=== PATIENT | female | born 1955 | race Caucasian/White ===

== ENCOUNTER 2017-02-22 15:42 | Observation (INO) | payer OTHER ==
[~2017-02-22] VITALS: Ht 177.8 cm; Wt 85.4 kg
[~2017-02-22 15:42] MED LIST changes: -CHLORHEXIDINE GLUCONATE 2 % 1 PACK (2 CLOTHS) TOPICAL PRN; -CHOL5000 PO; -DEXAMETHASONE SOD PHOS 4 MG/ML VIAL ONE; -DO NOT ADM ANY ANTICOAGULANT DRUGS PRN; -FAMOTIDINE 20 MG/2 ML VIAL ONE; -HEMOCAP PO; -HYDROmorphone HCL 2 MG TAB PO PRN; -HYDROmorphone HCL PF 1 MG/ML VIAL ONE; -INSULIN HUMAN REGULAR 1,000 UNITS/10 ML VIAL SQ PRN; -KETOROLAC TROMETHAMINE 60 MG/2 ML (IM) VIAL IM ONE; -LACTATED RINGER'S 1000 ML IV PRN; -LACTCAP8 PO; -METOPROLOL TARTRATE 25 MG TAB PO PRN; -MIDAZOLAM HCL 2 MG/2 ML VIAL ONE; -ONDANSETRON HCL 4 MG/2 ML VIAL IV PUSH ONE; -ONDANSETRON HCL 4 MG/2 ML VIAL IV PUSH PRN; -PERC5TAB12 PO; -POVIDONE IODINE 5% (ANTISEPSIS KIT) 4 APPLICATIONS EACH NARE PRN; -PROM25TA10 PO; -PROPOFOL 200 MG/20 ML AMP IV ONE; -SODIUM CHLORID 0.9% 500 ML IV PRN; -ePHEDrine/NS 25 MG/5 ML SYR IV ONE
[2017-02-22 15:52] VITALS: BP 140/81; PULSE 78; RESP 22; TEMP 97.5; O2SAT 100
[2017-02-22] MEDS ORDERED: KETOROLAC TROMETHAMINE 30 MG/ML (IVP) VIAL IV PUSH ONE (16:15)
[2017-02-22] MEDS ORDERED: MORPHINE SULFATE 4 MG/ML INJ IV PUSH ONE (16:15)
[2017-02-22] MEDS ORDERED: ONDANSETRON HCL 4 MG/2 ML VIAL IV PUSH ONE ×2 (16:15→17:00)
[2017-02-22] MEDS ORDERED: SODIUM CHLOR 0.9% 1000 ML INJ 1,000 ML IV ONE (16:15)
[2017-02-22 16:42] LABS: AUTOMATED NEUTROPHIL # 13.1 TH/MM3 (1.8-7.7); BASOPHIL # 0.1 TH/MM3 (0-0.2); BASOPHIL % 0.6 % (0.0-2.0); EOSINOPHIL % 0.2 % (0.0-4.0); HEMATOCRIT 35.2 % (35.0-46.0); LYMPH % 2.9 % (9.0-44.0); LYMPHOCYTE # 0.4 TH/MM3 (1.0-4.8); MEAN CELL VOLUME 85.4 FL (80.0-100.0); MEAN CORPUSCULAR HEMOGLOBIN 29.9 PG (27.0-34.0); MEAN CORPUSCULAR HGB CONC 34.9 % (32.0-36.0); MONO % 2.4 % (0.0-8.0); NEUT % 93.9 % (16.0-70.0); PLATELET COUNT 260 TH/MM3 (150-450); RED BLOOD COUNT 4.12 MIL/MM3 (4.00-5.30); RED CELL DISTRIBUTION WIDTH 12.2 % (11.6-17.2); WHITE BLOOD COUNT 13.9 TH/MM3 (4.0-11.0)
--- NOTE | 2017-02-22 16:43 | RADHPO ---
EXAM DATE/TIME: 02/22/2017 16:21 [facility] COMPARISON: CHEST SINGLE AP, November 09, 2013, 15:32. INDICATIONS : Chest discomfort, nausea, vomiting for 4 hours MEDICAL HISTORY : None. SURGICAL HISTORY : None. ENCOUNTER: Initial ACUITY: 1 day PAIN SCORE: 0/10 LOCATION: Bilateral chest FINDINGS: Minimal streaky bibasilar parenchymal opacities are noted. Lung volumes are mildly diminished. There is no evidence of effusion. Cardiac contours are satisfactory. CONCLUSION: Mild basilar parenchymal opacities Moreno Gonzalez MD on February 22, 2017 at 16:41 Board Certified Radiologist. This report was verified electronically.
[2017-02-22 16:44] LABS: HEMO FLAGS DIFF FINAL
[2017-02-22 16:52] LABS: CHLORIDE 104 MEQ/L (98-107); POTASSIUM 3.7 MEQ/L (3.5-5.1); SODIUM (NA) 140 MEQ/L (136-145)
[2017-02-22 16:55] LABS: ANION GAP 10 MEQ/L (5-15); BICARBONATE 26.4 MEQ/L (21.0-32.0)
[2017-02-22 16:56] LABS: BLOOD UREA NITROGEN 15 MG/DL (7-18)
[2017-02-22 16:59] LABS: ALT (GPT) 30 U/L (10-53); AST (GOT) 27 U/L (15-37); GLOMERULAR FILTRATION RATE 59 ML/MIN (>89)
[2017-02-22 17:00] LABS: TOTAL BILIRUBIN ADULT 0.5 MG/DL (0.2-1.0)
[2017-02-22] MEDS ORDERED: HYDROmorphone HCL PF 1 MG/ML VIAL IV PUSH ONE ×2 (17:00→18:00)
[2017-02-22 17:01] LABS: ALKALINE PHOSPHATASE 100 U/L (45-117)
--- NOTE | 2017-02-22 17:30 | PD ---
HPI Chief Complaint: Pain: Acute or Chronic Time Seen by Provider: 16:03 Travel History International Travel<30 days: No Contact w/Intl Traveler<30days: No Traveled to known affect area: No History of Present Illness HPI Patient is a 61 year old female who comes in complaining of severe flank pain radiating into her abdomen. She had lithotripsy performed today for left sided renal stones and says the pain started shortly after that. She has not taken the Dilaudid she was prescribed because she says the bottle says to take it every 6 hours and it has not been 6 hours since she received it post procedure. She says she is very nauseous and has had vomiting. She also complains of a lot of belching and what she believes to be "gas pains." She says the pain is worse when she takes a deep breath. She denies cough or fevers. PFSH Past Medical History Asthma: Yes Cancer: No Cardiovascular Problems: No High Cholesterol: Yes Diabetes: No Diminished Hearing: No Endocrine: No Gastrointestinal Disorders: No Glaucoma: No Genitourinary: No Hepatitis: No Hiatal Hernia: No Hypertension: Yes Immune Disorder: No Medical other: Yes (HX ANEMIA) Musculoskeletal: No Neurologic: No Psychiatric: No Reproductive: No Respiratory: Yes (MILD ASTHMA) Thyroid Disease: No Influenza Vaccination: No ?: Not Menopausal: Yes Past Surgical History Abdominal Surgery: Yes (left inguinal hernia repair) AICD: No Body Medical Devices: none Cardiac Surgery: No Ear Surgery: No Endocrine Surgery: No Eye Surgery: No Genitourinary Surgery: Yes (lithotripsy) Gynecologic Surgery: Yes (c section) Neurologic Surgery: No Oral Surgery: No Pacemaker: No Thoracic Surgery: No Social History Alcohol Use: No Tobacco Use: No Substance Use: No Allergies-Medications (Allergen,Severity, Reaction): Coded Allergies: Codeine (Verified Allergy, Severe, itching and upset stomach, 02/22/17) Penicillin (Verified Allergy, Severe, upset stomach, 02/22/17) Reported Meds & Prescriptions Reported Meds & Active Scripts Active Dilaudid (Hydromorphone HCl) 2 Mg Tab 2 Mg PO Q6H PRN Reported Ambien (Zolpidem Tartrate) 10 Mg Tab 10 Mg PO HS PRN Omeprazole 20 Mg Tab 20 Mg PO DAILY Lovastatin 40 Mg Tab 40 Mg PO DAILY Vitamin D3 (Cholecalciferol) 5,000 Unit Chew 5,000 Units CHEW DAILY Symbicort Inh (Budesonide/Formoterol Fumarate) 80-4.5 Mcg/Act Aero 2 Puff INH Q12HR Amlodipine (Amlodipine Besylate) 10 Mg Tab 10 Mg PO DAILY Proair Hfa 8.5 GM Inh (Albuterol Sulfate) 90 Mcg/Act Aer 2 Puff INH Q4-6H PRN 108 mcg/actuation Review of Systems Except as stated in HPI: all other systems reviewed are Neg General / Constitutional: No: Fever, Chills Eyes: No: Blurred Vision HENT: No: Headaches, Lightheadedness Respiratory: Positive: Shortness of Breath, No: Cough Gastrointestinal: Positive: Nausea, Vomiting, Abdominal Pain Musculoskeletal: Positive: Pain Skin: No Rash, No Change in Pigmentation Neurologic: No: Weakness, Dizziness Physical Exam Narrative GENERAL: Awake and alert, in mild distress due to pain. SKIN: Focused skin assessment warm/dry. HEAD: Atraumatic. Normocephalic. EYES: Pupils equal and round. No scleral icterus. ENT: Mucous membranes pink and moist. NECK: Trachea midline. No JVD. CARDIOVASCULAR: Regular rate and rhythm. No murmur appreciated. RESPIRATORY: No accessory muscle use. Clear to auscultation. Breath sounds equal bilaterally. GASTROINTESTINAL: Abdomen soft, non-tender, nondistended. Tender to palpation in left CVA. MUSCULOSKELETAL: No obvious deformities. No clubbing. No cyanosis. No edema. NEUROLOGICAL: Awake and alert. No obvious cranial nerve deficits. Motor grossly within normal limits. Normal speech. PSYCHIATRIC: Appropriate mood and affect; insight and judgment normal. Data Data Last Documented VS Vital Signs Date Time Temp Pulse Resp B/P Pulse Ox O2 Delivery O2 Flow Rate FiO2 02/22/17 16:09 18 02/22/17 15:52 97.5 78 140/81 100 Orders Complete Blood Count With Diff (02/22/17 16:09) Comprehensive Metabolic Panel (02/22/17 16:09) Urinalysis - C+S If Indicated (02/22/17 16:09) Sodium Chlor 0.9% 1000 Ml Inj (Ns 1000 M (02/22/17 16:15) Morphine Inj (Morphine Inj) (02/22/17 16:15) Ondansetron Inj (Zofran Inj) (02/22/17 16:15) Ketorolac Inj (Toradol Inj) (02/22/17 16:15) Ct Abd/Pel W/O Iv Contrast (02/22/17 ) Chest, Single Ap (02/22/17 ) Ondansetron Inj (Zofran Inj) (02/22/17 17:00) Hydromorphone Pf Inj (Dilaudid Pf Inj) (02/22/17 17:00) Hydromorphone Pf Inj (Dilaudid Pf Inj) (02/22/17 18:00) Admit Order (Ed Use Only) (02/22/17 ) Labs Laboratory Tests Test 02/22/17 02/22/17 16:28 18:05 White Blood Count 13.9 TH/MM3 Red Blood Count 4.12 MIL/MM3 Hemoglobin 12.3 GM/DL Hematocrit 35.2 % Mean Corpuscular Volume 85.4 FL Mean Corpuscular Hemoglobin 29.9 PG Mean Corpuscular Hemoglobin 34.9 % Concent Red Cell Distribution Width 12.2 % Platelet Count 260 TH/MM3 Mean Platelet Volume 7.4 FL Neutrophils (%) (Auto) 93.9 % Lymphocytes (%) (Auto) 2.9 % Monocytes (%) (Auto) 2.4 % Eosinophils (%) (Auto) 0.2 % Basophils (%) (Auto) 0.6 % Neutrophils # (Auto) 13.1 TH/MM3 Lymphocytes # (Auto) 0.4 TH/MM3 Monocytes # (Auto) 0.3 TH/MM3 Eosinophils # (Auto) 0.0 TH/MM3 Basophils # (Auto) 0.1 TH/MM3 CBC Comment DIFF FINAL Differential Comment Sodium Level 140 MEQ/L Potassium Level 3.7 MEQ/L Chloride Level 104 MEQ/L Carbon Dioxide Level 26.4 MEQ/L Anion Gap 10 MEQ/L Blood Urea Nitrogen 15 MG/DL Creatinine 0.96 MG/DL Estimat Glomerular Filtration 59 ML/MIN Rate Random Glucose 167 MG/DL Calcium Level 9.0 MG/DL Total Bilirubin 0.5 MG/DL Aspartate Amino Transf 27 U/L (AST/SGOT) Alanine Aminotransferase 30 U/L (ALT/SGPT) Alkaline Phosphatase 100 U/L Total Protein 7.6 GM/DL Albumin 4.3 GM/DL Urine Color THALIA Urine Turbidity CLOUDY Urine pH 7.0 Urine Specific [place] 1.011 Urine Protein 100 mg/dL Urine Glucose (UA) NEG mg/dL Urine Ketones NEG mg/dL Urine Occult Blood LARGE Urine Nitrite NEG Urine Bilirubin NEG Urine Leukocyte Esterase TRACE Urine RBC 50-99 /hpf Urine WBC 0-2 /hpf Urine Squamous Epithelial 0-5 /hpf Cells Microscopic Urinalysis Comment CULT NOT INDICATED MDM Medical Decision Making Medical Screen Exam Complete: Yes Emergency Medical Condition: Yes Medical Record Reviewed: Yes Differential Diagnosis Renal calculi versus pyelonephritis versus procedural complication Narrative Course Patient is a 61-year-old female comes in complaining of flank pain and abdominal pain with nausea and vomiting. Exam shows patient is very uncomfortable, tenderness to the left flank. Had IV established, labs sent. Labs show hemoglobin of 12.3. Given IV fluids, morphine, Zofran. Patient continued to have pain and nausea, given Dilaudid and Zofran. CT of the abdomen and pelvis performed shows a renal hematoma. I spoke with Dr. Rudolph of urology who suggests observation with serial hemoglobins. Patient placed in observation for further management. Diagnosis Primary Impression: Renal hematoma Qualified Code: S37.012A - Renal hematoma, left, initial encounter Admitting Information Admitting Physician Requests: Observation Condition: Stable Pati Walden MD February 22, 2017 17:30
[2017-02-22 18:35] LABS: BLOOD, URINE LARGE (NEG); GLUCOSE,URINE NEG (NEG); KETONE, URINE NEG (NEG); NITRITE,URINE NEG (NEG)
--- NOTE | 2017-02-22 18:39 | RADHPO ---
EXAM DATE/TIME: 02/22/2017 17:59 [facility] COMPARISON: No previous studies available for comparison. INDICATIONS : Increased abdominal pain and vomiting post left lithotripsy today. ORAL CONTRAST: No oral contrast ingested. RADIATION DOSE: 23.98 CTDIvol (mGy) MEDICAL HISTORY : Hypertension. Renal calculi. Hernia, inguinal. SURGICAL HISTORY : Inguinal hernia repair. section. ENCOUNTER: Initial ACUITY: 1 day PAIN SCALE: 10/10 LOCATION: Left abdomen TECHNIQUE: Volumetric scanning of the abdomen and pelvis was performed. Using automated exposure control and ad justment of the mA and/or kV according to patient size, radiation dose was kept as low as reasonably achievable to obtain optimal diagnostic quality images. FINDINGS: Minimal atelectatic changes at the lung bases. There are degenerative changes of the spine seen. No p leural effusions. A calcified gallstone is present within the gallbladder measuring 1.9 cm. There is a large subcapsular hematoma left kidney seen posteriorly and extending from the upper, mid to lower pole, with perinephric extension measuring on image 61 a maximal 10.4 x 7.4 cm in transverse and AP d imension. Multiple left-sided renal calculi are identified the largest at the lower pole measuring 1 cm. Punctate nonobstructing right renal calculi are present as well as a hyperdense mass right mid po le medially likely a hemorrhagic or proteinaceous cyst, right lateral mid to upper pole renal scarrin g. Hemorrhage is seen extending into the left upper quadrant. Urinary bladder, uterus and ovaries are unremarkable. No evidence of bowel obstruction. No adenopathy. Spleen, pancreas, bilateral adrenal g lands are unremarkable. CONCLUSION: 1. Left renal and perirenal hematoma mass effect on the left kidney posteriorly as above. 2. Multiple nonobstructing bilateral renal calculi and right renal scarring. Ronald Geller MD on February 22, 2017 at 18:34 Board Certified Radiologist. This report was verified electronically.
[2017-02-22 18:41] LABS: URINE COLOR AMBER (YELLW/STRAW)
[2017-02-22 18:42] LABS: WBC, URINE 0-2 /hpf (0-5)
[2017-02-22 18:43] LABS: COMMENT (UR) CULT NOT INDICATED; CULTURE IF INDICATED CULT NOT INDICATED; SQUAMOUS EPITHELIAL CELL URINE 0-5 /hpf (0-5)
[2017-02-22 19:44] VITALS: BP 169/84; PULSE 68; RESP 16; O2SAT 100
--- NOTE | 2017-02-22 19:57 | HHI.HP ---
HPI Service [facility] Hospitalists Primary Care Physician Non-Staff Admission Diagnosis renal hematoma Chief Complaint: s/p lithotripsy with renal hematoma Travel History International Travel<30 Days: No Contact w/Intl Traveler <30 Da: No Traveled to Known Affected Are: No History of Present Illness Patient is a 61 year old female who comes in complaining of severe flank pain radiating into her abdomen. She had lithotripsy performed today for left sided renal stones and says the pain started shortly after that. She has not taken the Dilaudid she was prescribed because she says the bottle says to take it every 6 hours and it has not been 6 hours since she received it post procedure. She says she is very nauseous and has had vomiting. She also complains of a lot of belching and what she believes to be "gas pains." She says the pain is worse when she takes a deep breath. She denies cough or fevers. CT suggests large renal hematoma .Urology recommends admit follow hemoglobin and they will consult. Review of Systems Gastrointestinal: COMPLAINS OF: Abdominal pain, Nausea, Vomiting Past Family Social History Past Medical History asthma ,hypertension,hyperlipidemia Past Surgical History lithotripsy,inguinal hernia Reported Medications Ambien (Zolpidem Tartrate) 10 Mg Tab 10 Mg PO HS PRN Omeprazole 20 Mg Tab 20 Mg PO DAILY Lovastatin 40 Mg Tab 40 Mg PO DAILY Vitamin D3 (Cholecalciferol) 5,000 Unit Chew 5,000 Units CHEW DAILY Symbicort Inh (Budesonide/Formoterol Fumarate) 80-4.5 Mcg/Act Aero 2 Puff INH Q12HR Amlodipine (Amlodipine Besylate) 10 Mg Tab 10 Mg PO DAILY Proair Hfa 8.5 GM Inh (Albuterol Sulfate) 90 Mcg/Act Aer 2 Puff INH Q4-6H PRN 108 mcg/actuati Allergies: Coded Allergies: Codeine (Verified Allergy, Severe, itching and upset stomach, 02/22/17) Penicillin (Verified Allergy, Severe, upset stomach, 02/22/17) Social History NS,ND Physical Exam Vital Signs Vital Signs Date Time Temp Pulse Resp B/P Pulse Ox O2 Delivery O2 Flow Rate FiO2 02/22/17 19:44 68 16 169/84 100 Room Air 02/22/17 16:09 18 02/22/17 15:52 97.5 78 22 140/81 100 Physical Exam GENERAL: This is a well-nourished, well-developed patient, in no apparent distress. SKIN: No rashes, ecchymoses or lesions. Cool and dry. HEAD: Atraumatic. Normocephalic. No temporal or scalp tenderness. EYES: Pupils equal round and reactive. Extraocular motions intact. No scleral icterus. No injection or drainage. ENT: Nose without bleeding, purulent drainage or septal hematoma. Throat without erythema, tonsillar hypertrophy or exudate. Uvula midline. Airway patent. NECK: Trachea midline. No JVD or lymphadenopathy. Supple, nontender, no meningeal signs. CARDIOVASCULAR: Regular rate and rhythm without murmurs, gallops, or rubs. RESPIRATORY: Clear to auscultation. Breath sounds equal bilaterally. No wheezes , rales, or rhonchi. GASTROINTESTINAL: Abdomen soft, Left flank pain on palpation MUSCULOSKELETAL: Extremities without clubbing, cyanosis, or edema. No joint tenderness, effusion, or edema noted. No calf tenderness. Negative Homans sign bilaterally. NEUROLOGICAL: Awake and alert. Cranial nerves II through XII intact. Motor and sensory grossly within normal limits. Five out of 5 muscle strength in all muscle groups. Normal speech. Laboratory Laboratory Tests Test 02/22/17 02/22/17 16:28 18:05 White Blood Count 13.9 Red Blood Count 4.12 Hemoglobin 12.3 Hematocrit 35.2 Mean Corpuscular Volume 85.4 Mean Corpuscular Hemoglobin 29.9 Mean Corpuscular Hemoglobin 34.9 Concent Red Cell Distribution Width 12.2 Platelet Count 260 Mean Platelet Volume 7.4 Neutrophils (%) (Auto) 93.9 Lymphocytes (%) (Auto) 2.9 Monocytes (%) (Auto) 2.4 Eosinophils (%) (Auto) 0.2 Basophils (%) (Auto) 0.6 Neutrophils # (Auto) 13.1 Lymphocytes # (Auto) 0.4 Monocytes # (Auto) 0.3 Eosinophils # (Auto) 0.0 Basophils # (Auto) 0.1 CBC Comment DIFF FINAL Differential Comment Sodium Level 140 Potassium Level 3.7 Chloride Level 104 Carbon Dioxide Level 26.4 Anion Gap 10 Blood Urea Nitrogen 15 Creatinine 0.96 Estimat Glomerular Filtration 59 Rate Random Glucose 167 Calcium Level 9.0 Total Bilirubin 0.5 Aspartate Amino Transf 27 (AST/SGOT) Alanine Aminotransferase 30 (ALT/SGPT) Alkaline Phosphatase 100 Total Protein 7.6 Albumin 4.3 Urine Color THALIA Urine Turbidity CLOUDY Urine pH 7.0 Urine Specific [place] 1.011 Urine Protein 100 Urine Glucose (UA) NEG Urine Ketones NEG Urine Occult Blood LARGE Urine Nitrite NEG Urine Bilirubin NEG Urine Leukocyte Esterase TRACE Urine RBC 50-99 Urine WBC 0-2 Urine Squamous Epithelial 0-5 Cells Microscopic Urinalysis Comment CULT NOT INDICATED Result Diagram: 02/22/17 1628 02/22/17 1628 Imaging Last 24 hours Impressions Chest X-Ray 02/22/17 0000 Signed Impressions: Service Date/Time: Wednesday, February 22, 2017 16:21 - CONCLUSION: Mild basilar parenchymal opacities Moreno Gonzalez MD Abdomen/Pelvis CT 02/22/17 0000 Signed Impressions: Service Date/Time: Wednesday, February 22, 2017 17:59 - CONCLUSION: 1. Left renal and perirenal hematoma mass effect on the left kidney posteriorly as above. 2. Multiple nonobstructing bilateral renal calculi and right renal scarring. Ronald Geller MD Course in er given pain and nausea medication Assessment and Plan Problem List: (1) Renal hematoma Status: Acute Plan: follow hemoglobin and symptoms pain meds urology consult (2) Flank pain Status: Acute Plan: as above (3) Hypertension Status: Chronic Plan: continue home meds Assessment and Plan further plan as case progresses Code Status full Discussed Condition With patient Al Roldan MD February 22, 2017 19:57
[2017-02-22] MEDS ORDERED: ALBUTEROL SULFATE 90 MCG/ACT HFA 18 GM INHALER INH PRN (20:00)
[2017-02-22] MEDS ORDERED: HYDROmorphone HCL PF 1 MG/ML VIAL IV PRN (20:00)
[2017-02-22] MEDS ORDERED: SODIUM CHLORIDE 0.9% FLUSH 10 ML FLUSH IV FLUSH PRN (20:00)
[2017-02-22] MEDS ORDERED: BISACODYL 10 MG SUPP RECTAL PRN (20:00)
[2017-02-22] MEDS ORDERED: NALOXONE HCL 0.4 MG/ML AMP IV PRN (20:00)
[2017-02-22] MEDS ORDERED: ZOLPIDEM TARTRATE 10 MG TAB PO PRN (20:00)
[2017-02-22] MEDS: SODIUM CHLOR 0.45% 1000 ML INJ 1,000 ML IV SCH (20:20)
[2017-02-22] MEDS: LEVOFLOXACIN 500 MG PREMIX INJ 100 ML IV SCH (20:21)
[2017-02-22] MEDS: SODIUM CHLORIDE 0.9% FLUSH 10 ML FLUSH IV FLUSH SCH (21:00)
[2017-02-22] MEDS: BUDESONIDE-FORMOTEROL 80/4.5 MCG INHALER INH SCH (21:00)
[2017-02-22 21:15] VITALS: BP 181/105; PULSE 83; RESP 20; TEMP 97.7; O2SAT 97
[2017-02-22 22:59] VITALS: BP 177/98; PULSE 86
[2017-02-22] MEDS ORDERED: MORPHINE SULFATE 4 MG/ML INJ IV SCH (23:00)
[2017-02-22] MEDS: ONDANSETRON HCL 4 MG/2 ML VIAL IVP PRN (23:30)
[2017-02-23 00:45] VITALS: BP 134/76; PULSE 88; RESP 20; TEMP 98.7; O2SAT 94
[2017-02-23] MEDS: SODIUM CHLOR 0.45% 1000 ML INJ 1,000 ML IV SCH ×2 (01:04→17:21)
[2017-02-23 04:00] VITALS: BP 112/50; PULSE 88; RESP 20; TEMP 98.5; O2SAT 94
[2017-02-23 06:38] LABS: AUTOMATED NEUTROPHIL # 6.4 TH/MM3 (1.8-7.7); BASOPHIL % 0.2 % (0.0-2.0); CHLORIDE 102 MEQ/L (98-107); EOSINOPHIL % 0.2 % (0.0-4.0); HEMATOCRIT 28.9 % (35.0-46.0); HEMO FLAGS DIFF FINAL; LYMPHOCYTE # 0.6 TH/MM3 (1.0-4.8); MEAN CELL VOLUME 86.1 FL (80.0-100.0); MEAN CORPUSCULAR HEMOGLOBIN 29.4 PG (27.0-34.0); MEAN CORPUSCULAR HGB CONC 34.2 % (32.0-36.0); MONO % 10.8 % (0.0-8.0); NEUT % 80.8 % (16.0-70.0); PLATELET COUNT 264 TH/MM3 (150-450); POTASSIUM 4.3 MEQ/L (3.5-5.1); RED BLOOD COUNT 3.35 MIL/MM3 (4.00-5.30); RED CELL DISTRIBUTION WIDTH 12.1 % (11.6-17.2); SODIUM (NA) 138 MEQ/L (136-145); WHITE BLOOD COUNT 7.8 TH/MM3 (4.0-11.0)
[2017-02-23 06:44] LABS: ANION GAP 8 MEQ/L (5-15); BICARBONATE 27.9 MEQ/L (21.0-32.0); BLOOD UREA NITROGEN 18 MG/DL (7-18)
[2017-02-23 06:49] LABS: ALT (GPT) 25 U/L (10-53); AST (GOT) 18 U/L (15-37); GLOMERULAR FILTRATION RATE 50 ML/MIN (>89); TOTAL BILIRUBIN ADULT 0.5 MG/DL (0.2-1.0)
[2017-02-23 06:50] LABS: ALKALINE PHOSPHATASE 77 U/L (45-117)
[2017-02-23 08:00] VITALS: BP 152/78; PULSE 86; RESP 18; TEMP 98.8; O2SAT 94
[2017-02-23] MEDS: SODIUM CHLORIDE 0.9% FLUSH 10 ML FLUSH IV FLUSH SCH ×2 (08:42→21:18)
[2017-02-23] MEDS: HYDROmorphone HCL PF 2 MG/ML VIAL IV PRN ×2 (09:02→21:18)
[2017-02-23] MEDS: PRAVASTATIN SOD 40 MG TAB PO SCH (09:06)
[2017-02-23] MEDS: PANTOPRAZOLE SOD 20 MG DELAYED RELEASE TAB PO SCH (09:06)
--- NOTE | 2017-02-23 10:29 | HHI.PR ---
Subjective Remarks Patient feeling much better on pain medication and zofran for nausea await urology evaluation . Objective Vitals GENERAL: SKIN: Warm and dry. HEAD: Atraumatic. Normocephalic. EYES: Pupils equal and round. No scleral icterus. No injection or drainage. ENT: No nasal bleeding or discharge. Mucous membranes pink and moist. NECK: Trachea midline. No JVD. CARDIOVASCULAR: Regular rate and rhythm. RESPIRATORY: No accessory muscle use. Clear to auscultation. Breath sounds equal bilaterally. GASTROINTESTINAL: Abdomen soft, non-tender, nondistended. Hepatic and splenic margins not palpable. MUSCULOSKELETAL: Extremities without clubbing, cyanosis, or edema. No obvious deformities. NEUROLOGICAL: Awake and alert. No obvious cranial nerve deficits. Motor grossly within normal limits. Five out of 5 muscle strength in the arms and legs. Normal speech. PSYCHIATRIC: Appropriate mood and affect; insight and judgment normal. Vital Signs Date Time Temp Pulse Resp B/P Pulse Ox O2 Delivery O2 Flow Rate FiO2 02/23/17 08:00 98.8 86 18 152/78 94 02/23/17 04:00 98.5 88 20 112/50 94 Automatic Cuff 02/23/17 00:45 98.7 88 20 134/76 94 02/22/17 22:59 86 177/98 02/22/17 21:15 97.7 83 20 181/105 97 02/22/17 19:44 68 16 169/84 100 Room Air 02/22/17 16:09 18 02/22/17 15:52 97.5 78 22 140/81 100 02/22/17 02/22/17 02/23/17 15:00 23:00 07:00 Intake Total 1160 ml 0 ml Balance 1160 ml 0 ml Intake Oral 160 ml 0 ml IV Total 1000 ml # Voids 4 1 # Bowel Movements 0 0 Result Diagram: 02/23/17 0618 02/23/17 0618 Imaging Last 24 hours Impressions Chest X-Ray 02/22/17 0000 Signed Impressions: Service Date/Time: Wednesday, February 22, 2017 16:21 - CONCLUSION: Mild basilar parenchymal opacities Moreno Gonzalez MD Abdomen/Pelvis CT 02/22/17 0000 Signed Impressions: Service Date/Time: Wednesday, February 22, 2017 17:59 - CONCLUSION: 1. Left renal and perirenal hematoma mass effect on the left kidney posteriorly as above. 2. Multiple nonobstructing bilateral renal calculi and right renal scarring. Ronald Geller MD A/P Problem List: (1) Renal hematoma Status: Acute Plan: hemogloblin did drop to 9 but overall pain improved will recheck hgb at 1pm await urology (2) Flank pain Status: Acute Plan: as above (3) Hypertension Status: Chronic Plan: continue home meds Assessment and Plan await urology evaluation Problem Qualifiers (1) Renal hematoma: Qualified Code: S37.012A - Renal hematoma, left, initial encounter Al Roldan MD February 23, 2017 10:29
[2017-02-23] MEDS: ONDANSETRON HCL 4 MG/2 ML VIAL IVP PRN ×2 (10:31→17:19)
[2017-02-23] MEDS: BUDESONIDE-FORMOTEROL 80/4.5 MCG INHALER INH SCH ×2 (10:35→21:17)
[2017-02-23] MEDS: CHOLECALCIFEROL (VIT D3) 5000 UNIT CAP PO SCH (10:49)
[2017-02-23 12:00] VITALS: BP 129/76; PULSE 70; RESP 18; TEMP 98.2; O2SAT 95
--- NOTE | 2017-02-23 13:15 | PD.CONS ---
HPI Service Urology Consult Requested By Primary Care Physician Non-Staff Diagnosis: (1) Renal hematoma ICD Code: S37.019A (2) Flank pain ICD Code: R10.9 (3) Hypertension ICD Code: I10 History of Present Illness 61-year-old female who is status post shockwave lithotripsy of multiple calculi involving the left kidney on February 22 of this year. The procedure went well without complications. The patient presented to the emergency room on the same day of surgery with worsening left flank pain and nausea and vomiting. Workup in the emergency room included a CT scan that demonstrated a large left sided subcapsular renal hematoma. The hematoma measured approximately 11 x 7 cm. Patient was admitted for pain management and to monitor her hematocrit. At time of consultation, the patient reported that her pain was well managed and her hematocrit was stable. Review of Systems Constitutional: DENIES: Fever Gastrointestinal: COMPLAINS OF: Abdominal pain (left abdomen) Musculoskeletal: COMPLAINS OF: Back pain (left flank) Except as stated in HPI: all other systems reviewed are Neg Past Family Social History Past Medical History Renal calculi Asthma Hypertension Hyperlipidemia Past Surgical History Status post extracorporeal shockwave lithotripsy Status post inguinal hernia repair Reported Medications Refer to EMR Allergies: Coded Allergies: Codeine (Verified Allergy, Severe, itching and upset stomach, 02/22/17) Penicillin (Verified Allergy, Severe, upset stomach, 02/22/17) Active Ordered Medications Refer to EMR Family History Reviewed and noncontributory Social History Denies tobacco, alcohol or intravenous drug abuse Physical Exam Vital Signs Date Time Temp Pulse Resp B/P Pulse Ox O2 Delivery O2 Flow Rate FiO2 02/23/17 12:00 98.2 70 18 129/76 95 02/23/17 08:00 98.8 86 18 152/78 94 02/23/17 04:00 98.5 88 20 112/50 94 Automatic Cuff 02/23/17 00:45 98.7 88 20 134/76 94 02/22/17 22:59 86 177/98 02/22/17 21:15 97.7 83 20 181/105 97 02/22/17 19:44 68 16 169/84 100 Room Air 02/22/17 16:09 18 02/22/17 15:52 97.5 78 22 140/81 100 Physical Exam GENERAL: This is a well-nourished, well-developed patient, in no apparent distress. SKIN: No rashes, ecchymoses or lesions. Cool and dry. HEAD: Atraumatic. Normocephalic. No temporal or scalp tenderness. EYES: Pupils equal round and reactive. Extraocular motions intact. No scleral icterus. No injection or drainage. ENT: Nose without bleeding, purulent drainage or septal hematoma. Throat without erythema, tonsillar hypertrophy or exudate. Uvula midline. Airway patent. NECK: Trachea midline. No JVD or lymphadenopathy. Supple, nontender, no meningeal signs. CARDIOVASCULAR: Regular rate and rhythm without murmurs, gallops, or rubs. RESPIRATORY: Clear to auscultation. Breath sounds equal bilaterally. No wheezes , rales, or rhonchi. GASTROINTESTINAL: Abdomen soft, tender to palpation on the left upper quadrant No guarding. GENITOURINARY: Left CVA tenderness MUSCULOSKELETAL: Extremities without clubbing, cyanosis, or edema. No joint tenderness, effusion, or edema noted. No calf tenderness. Negative Homans sign bilaterally. NEUROLOGICAL: Awake and alert. Cranial nerves II through XII intact. Motor and sensory grossly within normal limits. Five out of 5 muscle strength in all muscle groups. Normal speech. Laboratory Tests Test 02/22/17 02/22/17 02/23/17 16:28 18:05 06:18 White Blood Count 13.9 7.8 Red Blood Count 4.12 3.35 Hemoglobin 12.3 9.9 Hematocrit 35.2 28.9 Mean Corpuscular Volume 85.4 86.1 Mean Corpuscular Hemoglobin 29.9 29.4 Mean Corpuscular Hemoglobin 34.9 34.2 Concent Red Cell Distribution Width 12.2 12.1 Platelet Count 260 264 Mean Platelet Volume 7.4 7.4 Neutrophils (%) (Auto) 93.9 80.8 Lymphocytes (%) (Auto) 2.9 8.0 Monocytes (%) (Auto) 2.4 10.8 Eosinophils (%) (Auto) 0.2 0.2 Basophils (%) (Auto) 0.6 0.2 Neutrophils # (Auto) 13.1 6.4 Lymphocytes # (Auto) 0.4 0.6 Monocytes # (Auto) 0.3 0.8 Eosinophils # (Auto) 0.0 0.0 Basophils # (Auto) 0.1 0.0 CBC Comment DIFF FINAL DIFF FINAL Differential Comment Sodium Level 140 138 Potassium Level 3.7 4.3 Chloride Level 104 102 Carbon Dioxide Level 26.4 27.9 Anion Gap 10 8 Blood Urea Nitrogen 15 18 Creatinine 0.96 1.10 Estimat Glomerular Filtration 59 50 Rate Random Glucose 167 116 Calcium Level 9.0 8.8 Total Bilirubin 0.5 0.5 Aspartate Amino Transf 27 18 (AST/SGOT) Alanine Aminotransferase 30 25 (ALT/SGPT) Alkaline Phosphatase 100 77 Total Protein 7.6 6.6 Albumin 4.3 3.7 Urine Color THALIA Urine Turbidity CLOUDY Urine pH 7.0 Urine Specific [place] 1.011 Urine Protein 100 Urine Glucose (UA) NEG Urine Ketones NEG Urine Occult Blood LARGE Urine Nitrite NEG Urine Bilirubin NEG Urine Leukocyte Esterase TRACE Urine RBC 50-99 Urine WBC 0-2 Urine Squamous Epithelial 0-5 Cells Microscopic Urinalysis Comment CULT NOT INDICATED Result Diagram: 02/23/17 0618 02/23/17 0618 Imaging Last Impressions Chest X-Ray 02/22/17 0000 Signed Impressions: Service Date/Time: Wednesday, February 22, 2017 16:21 - CONCLUSION: Mild basilar parenchymal opacities Moreno Gonzalez MD Abdomen/Pelvis CT 02/22/17 0000 Signed Impressions: Service Date/Time: Wednesday, February 22, 2017 17:59 - CONCLUSION: 1. Left renal and perirenal hematoma mass effect on the left kidney posteriorly as above. 2. Multiple nonobstructing bilateral renal calculi and right renal scarring. Ronald Geller MD Assessment and Plan Assessment and Plan Urologic impression: Status post left sided extracorporeal shockwave lithotripsy with postoperative left subcapsular renal hematoma development. Plan: #1 analgesic support #2 repeat hematocrit tomorrow morning #[address] scan tomorrow morning #[address] and CT scan findings are stable and pain managed with oral medication then patient may be discharged home Problem Qualifiers (1) Renal hematoma: Qualified Code: S37.012A - Renal hematoma, left, initial encounter Nehemias Hubbard MD February 23, 2017 13:15
[2017-02-23 13:19] LABS: HEMATOCRIT 30.5 % (35.0-46.0); MEAN CELL VOLUME 86.9 FL (80.0-100.0); MEAN CORPUSCULAR HEMOGLOBIN 28.8 PG (27.0-34.0); MEAN CORPUSCULAR HGB CONC 33.1 % (32.0-36.0); PLATELET COUNT 261 TH/MM3 (150-450); RED BLOOD COUNT 3.51 MIL/MM3 (4.00-5.30); RED CELL DISTRIBUTION WIDTH 12.3 % (11.6-17.2); REVIEW FLAG FINAL; WHITE BLOOD COUNT 11.1 TH/MM3 (4.0-11.0)
[2017-02-23 16:00] VITALS: BP 132/74; PULSE 74; RESP 18; TEMP 98.7; O2SAT 96
[2017-02-23 20:00] VITALS: BP 144/81; PULSE 79; RESP 20; TEMP 97.8; O2SAT 91
[2017-02-23] MEDS: LEVOFLOXACIN 500 MG PREMIX INJ 100 ML IV SCH (21:17)
[2017-02-24] VITALS: BP 118/75; PULSE 76; RESP 20; TEMP 98.9; O2SAT 95
[2017-02-24 04:00] VITALS: BP 108/75; PULSE 84; RESP 20; TEMP 98.9; O2SAT 91
[2017-02-24] MEDS: HYDROmorphone HCL PF 2 MG/ML VIAL IV PRN ×2 (04:32→11:49)
[2017-02-24 06:43] LABS: AUTOMATED NEUTROPHIL # 4.2 TH/MM3 (1.8-7.7); BASOPHIL % 0.1 % (0.0-2.0); EOSINOPHIL # 0.1 TH/MM3 (0-0.4); EOSINOPHIL % 1.5 % (0.0-4.0); HEMATOCRIT 27.2 % (35.0-46.0); HEMO FLAGS DIFF FINAL; LYMPH % 17.7 % (9.0-44.0); LYMPHOCYTE # 1.1 TH/MM3 (1.0-4.8); MEAN CELL VOLUME 86.6 FL (80.0-100.0); MEAN CORPUSCULAR HEMOGLOBIN 28.6 PG (27.0-34.0); MEAN CORPUSCULAR HGB CONC 33.1 % (32.0-36.0); MONO % 12.7 % (0.0-8.0); PLATELET COUNT 226 TH/MM3 (150-450); RED BLOOD COUNT 3.14 MIL/MM3 (4.00-5.30); RED CELL DISTRIBUTION WIDTH 12.4 % (11.6-17.2); WHITE BLOOD COUNT 6.2 TH/MM3 (4.0-11.0)
[2017-02-24] MEDS: ONDANSETRON HCL 4 MG/2 ML VIAL IVP PRN (07:40)
[2017-02-24] MEDS: SODIUM CHLOR 0.45% 1000 ML INJ 1,000 ML IV SCH (07:41)
[2017-02-24 08:00] VITALS: BP 120/74; PULSE 70; RESP 20; TEMP 96.7; O2SAT 96
--- NOTE | 2017-02-24 08:39 | RADHPO ---
EXAM DATE/TIME: 02/24/2017 07:37 CORRECTION Corrected on: March 03, 2017; fixed spelling of word caused in INDICATIONS [place] COMPARISON: CT ABDOMEN & PELVIS W/O CONTRAST, February 22, 2017, 17:59. INDICATIONS : Lithotripsy 2 days ago that caused kidney to bleed. Nausea. ORAL CONTRAST: No oral contrast ingested. RADIATION DOSE: 19.54 CTDIvol (mGy) MEDICAL HISTORY : Renal calculi. SURGICAL HISTORY : Lingunal hernia repair. ENCOUNTER: Subsequent ACUITY: 2 days PAIN SCALE: 7/10 LOCATION: Left kidney TECHNIQUE: Volumetric scanning of the abdomen and pelvis was performed. Using automated exposure control and ad justment of the mA and/or kV according to patient size, radiation dose was kept as low as reasonably achievable to obtain optimal diagnostic quality images. FINDINGS: LOWER LUNGS: The visualized lower lungs are clear. LIVER: Homogeneous density without lesion. There is no dilation of the biliary tree. Large calcified galls tone. SPLEEN: Normal size without lesion. PANCREAS: Within normal limits. KIDNEYS: Sided subcapsular hematoma again seen measuring 9.9 x 6.8 cm. Bilateral nonobstructing renal calculi. Left kidney displaced anteriorly unchanged. ADRENAL GLANDS: Within normal limits. VASCULAR: There is no aortic aneurysm. BOWEL/MESENTERY: Diverticulosis. There is no free intraperitoneal air or fluid. ABDOMINAL WALL: Within normal limits. RETROPERITONEUM: There is no lymphadenopathy. BLADDER: No wall thickening or mass. REPRODUCTIVE: Within normal limits. INGUINAL: There is no lymphadenopathy or hernia. MUSCULOSKELETAL: Within normal limits for patient age. CONCLUSION: 1. Large left subcapsular hematoma is unchanged to slightly less prominent. 2. Multiple nonobstructing bilateral renal calculi. Luis Reyna MD on February 24, 2017 at 8:30 Board Certified Radiologist. This report was verified electronically. on March 03, 2017 at 18:10 Board Certified Radiologist. This report was verified electronically.
[2017-02-24] MEDS: BUDESONIDE-FORMOTEROL 80/4.5 MCG INHALER INH SCH (09:00)
[2017-02-24] MEDS: CHOLECALCIFEROL (VIT D3) 5000 UNIT CAP PO SCH (09:20)
[2017-02-24] MEDS: PANTOPRAZOLE SOD 20 MG DELAYED RELEASE TAB PO SCH (09:20)
[2017-02-24] MEDS: PRAVASTATIN SOD 40 MG TAB PO SCH (09:20)
[2017-02-24] MEDS: SODIUM CHLORIDE 0.9% FLUSH 10 ML FLUSH IV FLUSH SCH (09:23)
[2017-02-24 12:00] VITALS: BP 116/64; PULSE 81; RESP 20; TEMP 97.2; O2SAT 92
[2017-02-24] MEDS ORDERED: HYDROmorphone HCL 2 MG TAB PO PRN (15:00)
--- NOTE | 2017-02-24 15:20 | HHI.DCPOC ---
Discharge Care Plan Additional Problems renal hematoma Goals to Promote Your Health * To prevent worsening of your condition and complications * To maintain your health at the optimal level Directions to Meet Your Goals Take your medications as prescribed Follow your dietary instruction Follow activity as directed Keep your appointments as scheduled Take your immunizations and boosters as scheduled If your symptoms worsen call your PCP, if no PCP go to Urgent Care Center or Emergency Room Smoking is Dangerous to Your Health. Avoid second hand smoke Call the 24-hour hour crisis hotline for domestic abuse at Al Roldan MD February 24, 2017 15:20
--- NOTE | 2017-02-24 15:26 | HHI.DS ---
Discharge Summary Admission Date February 22, 2017 at 19:07 Admitting Diagnosis renal hematoma (1) Renal hematoma (2) Flank pain Diagnosis: Principal (3) Hypertension Diagnosis: Secondary Consultants urology Brief History Patient is a 61 year old female who comes in complaining of severe flank pain radiating into her abdomen. She had lithotripsy performed today for left sided renal stones and says the pain started shortly after that. She has not taken the Dilaudid she was prescribed because she says the bottle says to take it every 6 hours and it has not been 6 hours since she received it post procedure. She says she is very nauseous and has had vomiting. She also complains of a lot of belching and what she believes to be "gas pains." She says the pain is worse when she takes a deep breath. She denies cough or fevers. CT suggests large renal hematoma .Urology recommends admit follow hemoglobin and they will consult. CBC/BMP: 02/24/17 0445 02/23/17 0618 Significant Findings Laboratory Tests Test 02/22/17 02/22/17 02/23/17 02/23/17 16:28 18:05 06:18 13:06 White Blood Count 13.9 TH/MM3 11.1 TH/MM3 (4.0-11.0) (4.0-11.0) Neutrophils (%) (Auto) 93.9 % 80.8 % (16.0-70.0) (16.0-70.0) Lymphocytes (%) (Auto) 2.9 % 8.0 % (9.0-44.0) (9.0-44.0) Neutrophils # (Auto) 13.1 TH/MM3 (1.8-7.7) Lymphocytes # (Auto) 0.4 TH/MM3 0.6 TH/MM3 (1.0-4.8) (1.0-4.8) Estimat Glomerular Filtration 59 ML/MIN (>89) 50 ML/MIN (>89) Rate Random Glucose 167 MG/DL 116 MG/DL (74-106) (74-106) Urine Color THALIA (YELLW/STRAW) Urine Turbidity CLOUDY (CLEAR) Urine Protein 100 mg/dL (NEG-TRACE) Urine Occult Blood LARGE (NEG) Urine Leukocyte Esterase TRACE (NEG) Urine RBC 50-99 /hpf (0-3) Red Blood Count 3.35 MIL/MM3 3.51 MIL/MM3 (4.00-5.30) (4.00-5.30) Hemoglobin 9.9 GM/DL 10.1 GM/DL (11.6-15.3) (11.6-15.3) Hematocrit 28.9 % 30.5 % (35.0-46.0) (35.0-46.0) Monocytes (%) (Auto) 10.8 % (0.0-8.0) Creatinine 1.10 MG/DL (0.50-1.00) Test 02/24/17 04:45 Red Blood Count 3.14 MIL/MM3 (4.00-5.30) Hemoglobin 9.0 GM/DL (11.6-15.3) Hematocrit 27.2 % (35.0-46.0) Monocytes (%) (Auto) 12.7 % (0.0-8.0) Imaging Last 24 hours Impressions Abdomen/Pelvis CT 02/24/17 0600 Signed Impressions: Service Date/Time: Friday, February 24, 2017 07:37 - CONCLUSION: 1. Large left subcapsular hematoma is unchanged to slightly less prominent. 2. Multiple nonobstructing bilateral renal calculi. Luis Reyna MD PE at Discharge GENERAL: SKIN: Warm and dry. HEAD: Atraumatic. Normocephalic. EYES: Pupils equal and round. No scleral icterus. No injection or drainage. ENT: No nasal bleeding or discharge. Mucous membranes pink and moist. NECK: Trachea midline. No JVD. CARDIOVASCULAR: Regular rate and rhythm. RESPIRATORY: No accessory muscle use. Clear to auscultation. Breath sounds equal bilaterally. GASTROINTESTINAL: Abdomen soft, non-tender, nondistended. Hepatic and splenic margins not palpable. MUSCULOSKELETAL: Extremities without clubbing, cyanosis, or edema. No obvious deformities. NEUROLOGICAL: Awake and alert. No obvious cranial nerve deficits. Motor grossly within normal limits. Five out of 5 muscle strength in the arms and legs. Normal speech. PSYCHIATRIC: Appropriate mood and affect; insight and judgment normal. Hospital Course Patient admitted and was started on IV hydromorph which did help pain but also made patient nauseous and on discharge will go back on her prescription of PO hydromorph she already had from urology. Patient had large renal hematoma that on repeat CT showed no enlargement and slightly improvement . Patient hgb did drop to 9 but has had no symptoms urine improved in color and pain improved. Patient has follow up with urology on 03/03/17 and will call [facility] office monday if repeat CT scan suggested also patient will have repeat CBC on 02/28/17 to be done in [facility] and new prescription for lucy called in as well. Patient discharged in good condition. Pt Condition on Discharge: Good Discharge Disposition: Discharge Home Discharge Instructions DIET: Follow Instructions for: Heart Healthy Diet Activities you can perform: Regular-No Restrictions Continued Medications: Albuterol 8.5 GM Inh (Proair Hfa 8.5 GM Inh) 90 Mcg/Act Aer 2 PUFF INH Q4-6H 108 mcg/actuation PRN SHORTNESS OF BREATH #1 Ref 0 INHALER Amlodipine (Amlodipine) 10 Mg Tab 10 MG PO DAILY Blood Pressure Management #30 Ref 0 TAB Budesonide-Formoterol Inh (Symbicort Inh) 80-4.5 Mcg/Act Aero 2 PUFF INH Q12HR Asthma Management #1 Ref 0 INHALER Cholecalciferol (Vitamin D3) 5,000 Unit Chew 5000 UNITS CHEW DAILY Nutritional Supplement #1 Ref 0 BOTTLE Hydromorphone (Dilaudid) 2 Mg Tab 2 MG PO Q6H PRN PAIN SCALE 1 TO 10 #30 Ref 0 TAB Lovastatin (Lovastatin) 40 Mg Tab 40 MG PO DAILY Cholesterol Management #30 Ref 0 TAB Omeprazole (Omeprazole) 20 Mg Tab 20 MG PO DAILY #30 Ref 0 TAB Zolpidem (Ambien) 10 Mg Tab 10 MG PO HS PRN INSOMNIA Ref 0 TAB Additional Information will also have lucy called in and to follow up cbc on monday02/28/17 and follow up urology next week. Al Roldan MD February 24, 2017 15:26
--- NOTE | 2017-02-24 15:58 | HHI.PR ---
Subjective Patient symptoms today Pain improved today Continues complain of feeling somewhat nauseated but anxious to go home Has passed multiple small stone fragments Objective Vital Signs Vital Signs Date Time Temp Pulse Resp B/P Pulse Ox O2 Delivery O2 Flow Rate FiO2 02/24/17 12:00 97.2 81 20 116/64 92 02/24/17 08:00 96.7 70 20 120/74 96 02/24/17 04:00 98.9 84 20 108/75 91 02/24/17 00:00 98.9 76 20 118/75 95 02/23/17 20:00 97.8 79 20 144/81 91 Manual Cuff/Auscultation 02/23/17 16:00 98.7 74 18 132/74 96 Intake & Output 02/24/17 02/24/17 07:00 19:00 Intake Total 945 ml Balance 945 ml Intake Oral 120 ml IV Total 825 ml # Voids 7 5 # Bowel Movements 0 0 Result Diagram: 02/24/17 0445 02/23/17 0618 Imaging Last 24 hours Impressions Abdomen/Pelvis CT 02/24/17 0600 Signed Impressions: Service Date/Time: Friday, February 24, 2017 07:37 - CONCLUSION: 1. Large left subcapsular hematoma is unchanged to slightly less prominent. 2. Multiple nonobstructing bilateral renal calculi. Luis Reyna MD Medications and IVs Current Medications Medications (Trade) Dose Ordered Sig/Julia Route Start Time Stop Time Status Last Admin (Ventolin Hfa Inh) 2 puff Q8H PRN INH 02/22/17 20:00 02/24/17 09:21 (Norvasc) 10 mg DAILY PO 02/23/17 09:00 02/24/17 09:20 (Symbicort 80-4.5 Mcg Inh) 2 puff Q12HR INH 02/22/17 21:00 02/24/17 09:00 (Vitamin D3) 5,000 units DAILY PO 02/23/17 09:00 02/24/17 09:20 (Pravachol) 40 mg DAILY PO 02/23/17 09:00 02/24/17 09:20 (Ambien) 10 mg HS PRN PO 02/22/17 20:00 02/23/17 23:32 Pantoprazole Sodium 20 mg 20 mg DAILY PO 02/23/17 09:00 02/24/17 09:20 Levofloxacin/ Dextrose 100 ml @ 100 mls/hr Q24H IV 02/22/17 20:00 02/23/17 21:17 (1/2 NS 1000 ml Inj) 1,000 ml @ 75 mls/hr [id number] IV 02/22/17 19:49 02/24/17 07:41 (NS Flush) 2 ml UNSCH PRN IV FLUSH 02/22/17 20:00 (NS Flush) 2 ml BID IV FLUSH 02/22/17 21:00 02/24/17 09:23 (Zofran Inj) 4 mg Q6H PRN IVP 02/22/17 20:00 02/24/17 07:40 (Narcan Inj) 0.4 mg UNSCH PRN IV 02/22/17 20:00 (Dulcolax Supp) 10 mg DAILY PRN RECTAL 02/22/17 20:00 (Dilaudid) 2 mg Q6H PRN PO 02/24/17 15:00 Assessment and Plan Assessment and Plan Urologic impression: #1 slowly resolving left subcapsular renal hematoma with stable hematocrit #2 successful treatment of left renal stone with passage of multiple small stone fragments Plan: #1 okay to discharge home from standpoint #2 patient advised to contact my office on Monday to arrange follow up office visit within the next 2 weeks #3 patient to have a renal ultrasound study performed just prior to her office follow up visit with Nehemias Bone MD February 24, 2017 15:58
[2017-03-03] MEDS ORDERED: HEMOCAP PO (09:40)
[2017-03-03] MEDS ORDERED: CHOL5000 PO (09:40)
[2017-03-03] MEDS ORDERED: LACTCAP8 PO (09:40)
[2017-03-03] MEDS ORDERED: PROM25TA10 PO (10:20)
[2017-03-03] MEDS ORDERED: PERC5TAB12 PO (10:20)
== END 2017-02-24 17:00 | disposition home or self-care (01) ==
LOC: PHED 15:42 → PHEDA 19:07 → PH3A 20:57
PROVIDERS: ADMIT Internal Medicine; ATTEND Internal Medicine
DX: N99.840 Postprocedural hematoma of a genitourinary system organ or structure following a genitourinary system procedure (principal); N20.0 Calculus of kidney; I10 Essential (primary) hypertension; J45.909 Unspecified asthma, uncomplicated; E78.00 Pure hypercholesterolemia, unspecified; D64.9 Anemia, unspecified; E78.5 Hyperlipidemia, unspecified; Y83.8 Other surgical procedures as the cause of abnormal reaction of the patient, or of later complication, without mention of misadventure at the time of the procedure
CPT/HCPCS: 71010; 74176; 80053; 81001; 85025; 85027; 96361; 96374; 96375; 96376; 99285; G0378; J1170; J1885; J1956; J2270; J2405; J7030

== ENCOUNTER → 2017-02-22 | Day surgery (SDC) | payer OTHER ==
[~2017-02-22] VITALS: Ht 177.8 cm; Wt 83.3 kg
[~2017-02-22] MED LIST: ALBUAER3 INH; AMBI10TA PO; AMLO10TA2 PO; CHLORHEXIDINE GLUCONATE 2 % 1 PACK (2 CLOTHS) TOPICAL PRN; CHOL5000 PO; DEXAMETHASONE SOD PHOS 4 MG/ML VIAL ONE; DILA2TAB2 PO; DO NOT ADM ANY ANTICOAGULANT DRUGS PRN; FAMOTIDINE 20 MG/2 ML VIAL ONE; HEMOCAP PO; HYDROmorphone HCL 2 MG TAB PO PRN; HYDROmorphone HCL PF 1 MG/ML VIAL ONE; INSULIN HUMAN REGULAR 1,000 UNITS/10 ML VIAL SQ PRN; KETOROLAC TROMETHAMINE 60 MG/2 ML (IM) VIAL IM ONE; LACTATED RINGER'S 1000 ML IV PRN; LACTCAP8 PO; LOVA40TA PO; METOPROLOL TARTRATE 25 MG TAB PO PRN; MIDAZOLAM HCL 2 MG/2 ML VIAL ONE; OMEP20TA PO; ONDANSETRON HCL 4 MG/2 ML VIAL IV PUSH ONE; ONDANSETRON HCL 4 MG/2 ML VIAL IV PUSH PRN; PERC5TAB12 PO; POVIDONE IODINE 5% (ANTISEPSIS KIT) 4 APPLICATIONS EACH NARE PRN; PROM25TA10 PO; PROPOFOL 200 MG/20 ML AMP IV ONE; SODIUM CHLORID 0.9% 500 ML IV PRN; SYMB80AE INH; VITA500030 CHEW; ePHEDrine/NS 25 MG/5 ML SYR IV ONE
[2017-02-22 09:15] VITALS: BP 121/77; PULSE 69; RESP 18; TEMP 98.3; O2SAT 96
[2017-02-22 09:25] LABS: AUTOMATED NEUTROPHIL # 2.5 TH/MM3 (1.8-7.7); BASOPHIL % 0.6 % (0.0-2.0); EOSINOPHIL # 0.4 TH/MM3 (0-0.4); EOSINOPHIL % 9.2 % (0.0-4.0); HEMATOCRIT 36.2 % (35.0-46.0); HEMO FLAGS DIFF FINAL; LYMPH % 19.2 % (9.0-44.0); LYMPHOCYTE # 0.8 TH/MM3 (1.0-4.8); MEAN CORPUSCULAR HEMOGLOBIN 28.6 PG (27.0-34.0); MEAN CORPUSCULAR HGB CONC 33.7 % (32.0-36.0); MONO % 12.1 % (0.0-8.0); NEUT % 58.9 % (16.0-70.0); PLATELET COUNT 217 TH/MM3 (150-450); RED BLOOD COUNT 4.26 MIL/MM3 (4.00-5.30); RED CELL DISTRIBUTION WIDTH 13.1 % (11.6-17.2); WHITE BLOOD COUNT 4.2 TH/MM3 (4.0-11.0)
--- NOTE | 2017-02-22 09:39 | RADRPT ---
EXAM DATE/TIME: 02/22/2017 09:06 [facility] COMPARISON: No previous studies available for comparison. INDICATIONS : Pre-op lithotripsy. MEDICAL HISTORY : Renal calculi. SURGICAL HISTORY : None. ENCOUNTER: Initial ACUITY: 1 day PAIN SCORE: 0/10 LOCATION: Bilateral Abdomen. FINDINGS: Nonobstructive bowel gas pattern. There are no discrete calculi on the right. On the left a 1.1 cm ca lcification is noted at the mid to lower pole and a 7 mm calcification at the lower pole. Also noted at the expected location of the upper pole left kidney is a 5.1 mm calculus. CONCLUSION: Left sided renal calculi are noted as above. Ronald Geller MD on February 22, 2017 at 9:36 Board Certified Radiologist. This report was verified electronically.
--- NOTE | 2017-02-22 11:40 | PD.OP ---
Operative Report Date of Surgery: February 22, 2017 Preoperative Diagnosis: (1) Renal calculus, left Postoperative Diagnosis: (1) Renal calculus, left Procedure: Extracorporeal shockwave lithotripsy left renal calculi Anesthesia: General Surgeon: Nehemias Hubbard Risk Management Manager(s): None Operation and Findings: Indication for procedure: Case of a pleasant 61-year-old female with bilateral renal calculi. No right sided calculus is between 4 and 5 mm and is being managed conservatively at this time. Patient presents today to undergo shockwave lithotripsy of the eft sided calculi. Operative procedure in detail: Patient was brought to the operating room suite and placed supine on the lithotripsy table. She was then placed under general anesthesia. After an appropriate timeout was undertaken I proceeded with localizing the patient's left renal calculi with fluoroscopy. There were 2 calculi noted to be within the central left kidney measuring 11 and 7 mm respectively. A smaller superior stone was also identified. The central stones were then treated with shockwave lithotripsy utilizing the [employer] Piezolith device. The 2 central stones appear to spread out and become markedly signal constructor in intensity consistent with fragmentation after receiving 3000 shocks. The patient tolerated the procedure without complications and was transferred to the PACU in satisfactory condition. Nehemias Hubbard MD February 22, 2017 11:39
[2017-02-22 12:44] VITALS: BP 126/72; PULSE 70; RESP 16; TEMP 97.6; O2SAT 95
--- NOTE | 2017-02-22 19:21 | EKG ---
Date Performed: 02/22/2017 Time Performed: 09:43:17 PTAGE: 61 years EKG: Sinus rhythm RIGHT BUNDLE BRANCH BLOCK ABNORMAL ECG PREVIOUS TRACING : 12/08/2008 09.39 Compared to the previous tracing RBBB present DOCTOR: Ofelia Medel Interpretating Date/Time 02/22/2017 19:21:12
== END | disposition home or self-care (01) ==
LOC: HSDC 08:35
PROVIDERS: ATTEND Urology
DX: N20.0 Calculus of kidney (principal); I10 Essential (primary) hypertension; E78.5 Hyperlipidemia, unspecified; K21.9 Gastro-esophageal reflux disease without esophagitis; J45.909 Unspecified asthma, uncomplicated; Z87.891 Personal history of nicotine dependence; Z88.0 Allergy status to penicillin; Z88.5 Allergy status to narcotic agent
CPT/HCPCS: 50590; 74000; 85025; 93005; J1100; J1170; J1885; J2250; J2405; J7120